=== PATIENT | female | born 1975 | race African-American/Black ===

== ENCOUNTER 2023-11-13 21:37 | Emergency (ER) | payer SELFPAY ==
[~2023-11-13] VITALS: Ht 170.2 cm; Wt 117.0 kg
[2023-11-13 22:14] VITALS: BP 160/86; PULSE 83; RESP 16; TEMP 98.3; O2SAT 100
[2023-11-14] MEDS ORDERED: OCUFLX LEFTEYE (01:09)
[2023-11-14] MEDS: FLUORESCEIN SODIUM 1MG/STRIP BOTHEYE ONE (01:38)
[2023-11-14] MEDS: FLUORESCEIN SODIUM 1MG/STRIP BOTHEYE NR (01:38)
[2023-11-14] MEDS ORDERED: NAPR-1176 MT (02:12)
[2023-11-14] MEDS ORDERED: PRED5DRO22 RIGHTEYE (02:12)
[2023-11-14] MEDS: ACETAMINOPHEN 500MG TABLET PO ONE (02:15)
[2023-11-14] MEDS ORDERED: TOPUD MT (02:24)
== END 2023-11-14 02:38 | disposition home or self-care (01) ==
LOC: ER 21:37
DX: S05.02XA Injury of conjunctiva and corneal abrasion without foreign body, left eye, initial encounter (principal); H20.00 Unspecified acute and subacute iridocyclitis; J45.909 Unspecified asthma, uncomplicated; X58.XXXA Exposure to other specified factors, initial encounter; Y93.89 Activity, other specified; Y92.89 Other specified places as the place of occurrence of the external cause; Y99.8 Other external cause status
CPT/HCPCS: 99283